=== PATIENT | female | born 2000 | race Hispanic/Latino ===

== ENCOUNTER 2024-07-24 03:40 | Emergency (ER) | payer OTHER, SELFPAY ==
--- NOTE | ~2024-07-24 | US_ITS ---
EXAMINATION: US OB <= 14 weeks fetus DATE: 07/24/2024 7:25 CDT INDICATION: Abdominal pain. Positive test. Evaluate for ectopic COMPARISON: None TECHNIQUE: Real-time transabdominal and transvaginal obstetric ultrasound. FINDINGS: 1 para 0 Estimated date of delivery by last menstrual period is 03/11/2025 Quantitative serum beta hCG is 7,262 The uterus is 9.7 x 4.6 x 6.9 cm. No gestational sac is visualized. The endometrium is markedly heterogeneous, measuring 17 mm in thickness. Trace free fluid within the endocervical canal. Cine evaluation demonstrates uterine contractions with what appears to be mobile echogenic material w ithin the endometrium. The right ovary measures 4.4 x 2.0 x 3.0 cm. Simple free fluid is visualized adjacent to the right ov mauro. The left ovary measures 3.3 x 1.6 x 3.4 cm. Complex free fluid is visualized adjacent to the left ovary IMPRESSION: No gestational sac is identified within the uterus, which one would expect given the value of the kamini ntitative serum beta hCG. Echogenic material within the endometrial canal. Free fluid within the bilateral adnexa, left greater than right, with complexity left greater than ri ght. Short-term follow-up is recommended, to ensure evacuation of products, with serial quantitative serum beta hCG. Findings d/w Dr Menchaca at 7:40am on 07/24/24 Reviewed, dictated and finalized at location A. IMPRESSION: No gestational sac is identified within the uterus, which one would expect give n the value of the quantitative serum beta hCG. Echogenic material within the endometrial canal. Free fluid within the bilateral adnexa, left greater than right, with complexit y left greater than right. Short-term follow-up is recommended, to ensure evacuation of products, with ser ial quantitative serum beta hCG. Findings d/w Dr Menchaca at 7:40am on 07/24/24
[2024-07-24 03:47] VITALS: BP 118/76; PULSE 82; RESP 15; TEMP 36.6; O2SAT 100
[2024-07-24 04:11] VITALS: BP 99/68; PULSE 73; RESP 18; O2SAT 100
[2024-07-24 04:16] LABS: Basophils Percent Auto 0.5 % (0.2-1.2); Eosinophils Absolute Auto 0.3 K/mm3 (0-0.3); Eosinophils Percent Auto 3.7 % (0-4.4); Hematocrit 30.5 % (37.0-47.0); Hemoglobin 10.7 g/dL (12.0-15.0); Immature Granulocyte Absolute 0.02 K/mm3 (0.00-0.031); Immature Granulocyte Percent A 0.2 % (0-0.5); Lymphocytes Absolute Auto 3.89 K/mm3 (0.9-3.2); Lymphocytes Percent Auto 46.7 % (18.3-44.2); Mean Corpuscular HGB Conc 35.1 g/dl (32-36); Mean Corpuscular Hemoglobin 29.7 pg (26-34); Mean Corpuscular Volume 84.7 fl (80-100); Mean Platelet Volume 8.7 fl (7.4-10.4); Monocytes Absolute Auto 0.8 K/mm3 (0.1-0.6); Monocytes Percent Auto 9.8 % (2.6-8.5); Neutrophils Absolute Auto 3.3 K/mm3 (1.3-6.7); Neutrophils Percent Auto 39.1 % (45.5-73.1); Platelet Count Result 405 k/mm3 (150-375); Red Cell Distribution Width 13.7 % (11.5-14.5); White Blood Count 8.3 K/mm3 (4.5-10.0)
--- NOTE | 2024-07-24 04:23 | ED_ITS ---
HPI - General Adult General Chief complaint: Abdominal Pain <Luis Guo MD - Last Filed: 07/24/24 04:24> Stated complaint: abd pain <Luis Guo MD - Last Filed: 07/24/24 04:24> Time Seen by Provider: 07/24/24 03:55 <Luis Guo MD - Last Filed: 07/24/24 04:24> History of Present Illness HPI narrative: Patient 23-year-old female presents emergency department chief complaint of abdominal pain. Patient states she has been having pain for about 2 weeks reports that is diffuse throughout her abdomen patient reports he has had nausea and vomiting patient reports that she is currently on her menstrual cycle < Luis Guo MD - Last Filed: 07/24/24 04:24> Related Data Allergies/adverse reactions: Allergies Allergy/AdvReac Type Severity Reaction Status Date / Time No Known Allergies Allergy Verified 07/24/24 03:53 <Luis Guo MD - Last Filed: 07/24/24 04:24> Review of Systems 2 Review of Systems: A 10 system review of systems was completed on the patient and is negative except for what is stated in the HPI. Nursing and ancillary documentation was reviewed. <Luis Guo MD - Last Filed: 07/24/24 04:24> Exam 2 Narrative: GENERAL: Well-appearing, well-nourished, and in no acute distress. HEAD: Normocephalic, atraumatic. EYES: PERRLA and EOMI. ENT: Nares clear, no rhinorrhea or epistaxis. Mucous membranes moist. NECK: Supple. CHEST: Clear to auscultation. No respiratory distress. HEART: Regular rate and rhythm. No murmur heard. Normal peripheral pulses. ABDOMEN: Soft, diffuse tenderness, nondistended, normal active bowel sounds. EXTREMITIES: Normal range of motion. No edema. SKIN: Warm, dry, no rash. NEURO: No focal deficits. Alert and oriented x3. PSYCH: Normal mood and affect. <Luis Guo MD - Last Filed: 07/24/24 04:24> Course Reevaluation(s) Reevaluation #1: Patient laying down in bed, complaining of still having abdominal pain, morphine, Zofran ordered I did explain to the patient that the ultrasound showed that she have miscarriage right now and need to take Tylenol, ibuprofen as needed and contact OBGYN in the morning for further management. <Geronimo Menchaca MD - Last Filed: 07/24/24 08:37> Date: 07/24/24 <Geronimo Menchaca MD - Last Filed: 07/24/24 08:37> Time: 08:37 <Geronimo Menchaca MD - Last Filed: 07/24/24 08:37> Vital Signs Vital signs: Vital Signs Temperature 36.6 C 07/24/24 03:47 Pulse Rate 82 07/24/24 03:47 Respiratory Rate 15 07/24/24 03:47 Blood Pressure 118/76 07/24/24 03:47 Pulse Oximetry 100 07/24/24 03:47 Oxygen Delivery Room Air 07/24/24 03:47 Temperature 36.6 C 07/24/24 03:47 Pulse Rate 76 07/24/24 05:35 Respiratory Rate 18 07/24/24 05:35 Blood Pressure 108/67 07/24/24 05:35 Pulse Oximetry 100 07/24/24 05:35 Oxygen Delivery Room Air 07/24/24 03:47 <Luis Guo MD - Last Filed: 07/24/24 04:24> Vital Signs Temperature 36.6 C 07/24/24 03:47 Pulse Rate 82 07/24/24 03:47 Respiratory Rate 15 07/24/24 03:47 Blood Pressure 118/76 07/24/24 03:47 Pulse Oximetry 100 07/24/24 03:47 Oxygen Delivery Room Air 07/24/24 03:47 Temperature 36.6 C 07/24/24 03:47 Pulse Rate 76 07/24/24 05:35 Respiratory Rate 18 07/24/24 05:35 Blood Pressure 108/67 07/24/24 05:35 Pulse Oximetry 100 07/24/24 05:35 Oxygen Delivery Room Air 07/24/24 03:47 <Geronimo Menchaca MD - Last Filed: 07/24/24 08:37> Medical Decision Making Vital Signs Vital Signs: Vital Signs Temperature 36.6 C 07/24/24 03:47 Pulse Rate 82 07/24/24 03:47 Respiratory Rate 15 07/24/24 03:47 Blood Pressure 118/76 07/24/24 03:47 Pulse Oximetry 100 07/24/24 03:47 Oxygen Delivery Room Air 07/24/24 03:47 Temperature 36.6 C 07/24/24 03:47 Pulse Rate 76 07/24/24 05:35 Respiratory Rate 18 07/24/24 05:35 Blood Pressure 108/67 07/24/24 05:35 Pulse Oximetry 100 07/24/24 05:35 Oxygen Delivery Room Air 07/24/24 03:47 <Luis Guo MD - Last Filed: 07/24/24 04:24> Vital Signs Temperature 36.6 C 07/24/24 03:47 Pulse Rate 82 07/24/24 03:47 Respiratory Rate 15 07/24/24 03:47 Blood Pressure 118/76 07/24/24 03:47 Pulse Oximetry 100 07/24/24 03:47 Oxygen Delivery Room Air 07/24/24 03:47 Temperature 36.6 C 07/24/24 03:47 Pulse Rate 76 07/24/24 05:35 Respiratory Rate 18 07/24/24 05:35 Blood Pressure 108/67 07/24/24 05:35 Pulse Oximetry 100 07/24/24 05:35 Oxygen Delivery Room Air 07/24/24 03:47 <Geronimo Menchaca MD - Last Filed: 07/24/24 08:37> Lab Data Result diagrams: 07/24/24 04:09 07/24/24 04:09 <Luis Guo MD - Last Filed: 07/24/24 04:24> Labs: Lab Results 07/24/24 07/24/24 07/24/24 Range/Units 04:09 06:18 07:19 WBC 8.3 (4.5-10.0) K/mm3 RBC 3.60 L (4.2-5.4) M/mm3 Hgb 10.7 L (12.0-15.0) g/dL Hct 30.5 L (37.0-47.0) % MCV 84.7 (80-100) fl MCH 29.7 (26-34) pg MCHC 35.1 (32-36) g/dl RDW 13.7 (11.5-14.5) % Plt Count 405 H (150-375) k/mm3 MPV 8.7 (7.4-10.4) fl Immature Gran % (Auto) 0.2 (0-0.5) % Neut % (Auto) 39.1 L (45.5-73.1) % Lymph % (Auto) 46.7 H (18.3-44.2) % Falls % (Auto) 9.8 H (2.6-8.5) % Eos % (Auto) 3.7 (0-4.4) % Baso % (Auto) 0.5 (0.2-1.2) % Lymph # (Auto) 3.89 H (0.9-3.2) K/mm3 Falls # (Auto) 0.8 H (0.1-0.6) K/mm3 Eos # (Auto) 0.3 (0-0.3) K/mm3 Baso # (Auto) 0.0 (0.0-0.1) K/mm3 Abs Immat Gran (auto) 0.02 (0.00-0.031) K/mm3 Absolute Neuts (auto) 3.3 (1.3-6.7) K/mm3 Absolute Nucleated RBC 0.000 (0.0-0.012) K/mm3 Nucleated RBC % 0.0 (0.0-0.2) % Sodium 139 (137-145) mmol/L Potassium 3.2 L (3.4-5.0) mmol/L Chloride 106 (98-107) mmol/L Carbon Dioxide 18 L (22-30) mmol/L Anion Gap 15 H (4-12) mmol/L BUN 11 (7-17) mg/dL Creatinine 0.55 L (0.7-1.0) mg/dL Estim Creat Clear Calc 114 ml/min Estimated GFR > 60 (59 - ) Glucose 112 H (65-110) mg/dL Calcium 9.3 (8.4-10.2) mg/dL Total Bilirubin 0.4 (0.2-1.3) mg/dL AST 32 (14-36) U/L ALT 26 (6-35) U/L Alkaline Phosphatase 103 (38-126) U/L Total Protein 7.0 (6.3-8.2) g/dL Albumin 4.3 (3.5-5.1) g/dL Lipase 170 (23-300) U/L Serum HCG, Qual Positive A Beta HCG, Quant 7262.30 mIU/ML Urine Color Yellow (Yellow) Urine Appearance Cloudy H (Clear) Urine pH 8.5 (5.0-9.0) Ur Specific [place] 1.027 (1.001-1.035) Urine Protein 1+ H (Negative) mg/dL Urine Glucose (UA) Negative (Negative) mg/dL Urine Ketones 1+ H (Negative) mg/dL Ur Blood (Man) Trace (Negative) Urine Nitrate Positive H (Negative) Urine Bilirubin Negative (Negative) Urine Urobilinogen 1.0 (<2.0) mg/dL Leukocyte Esterase Rfl Negative (Negative) GELY/UL Urine RBC 0-2 (0-2) /hpf Urine WBC 0-5 (0-3) /hpf Ur Squamous Epith Cells None seen (Few) /hpf Urine Bacteria 4+ /hpf Urine Casts 3-5 POC Urine HCG, Qual (Negative) Blood Type O Positive Antibody Screen Negative Screen Not Reportable Baby's Blood Type Not Reportable Baby's MEAGHAN Not Reportable Doses of RhIg Required 0 07/24/24 Range/Units 07:34 WBC (4.5-10.0) K/mm3 RBC (4.2-5.4) M/mm3 Hgb (12.0-15.0) g/dL Hct (37.0-47.0) % MCV (80-100) fl MCH (26-34) pg MCHC (32-36) g/dl RDW (11.5-14.5) % Plt Count (150-375) k/mm3 MPV (7.4-10.4) fl Immature Gran % (Auto) (0-0.5) % Neut % (Auto) (45.5-73.1) % Lymph % (Auto) (18.3-44.2) % Falls % (Auto) (2.6-8.5) % Eos % (Auto) (0-4.4) % Baso % (Auto) (0.2-1.2) % Lymph # (Auto) (0.9-3.2) K/mm3 Falls # (Auto) (0.1-0.6) K/mm3 Eos # (Auto) (0-0.3) K/mm3 Baso # (Auto) (0.0-0.1) K/mm3 Abs Immat Gran (auto) (0.00-0.031) K/mm3 Absolute Neuts (auto) (1.3-6.7) K/mm3 Absolute Nucleated RBC (0.0-0.012) K/mm3 Nucleated RBC % (0.0-0.2) % Sodium (137-145) mmol/L Potassium (3.4-5.0) mmol/L Chloride (98-107) mmol/L Carbon Dioxide (22-30) mmol/L Anion Gap (4-12) mmol/L BUN (7-17) mg/dL Creatinine (0.7-1.0) mg/dL Estim Creat Clear Calc ml/min Estimated GFR (59 - ) Glucose (65-110) mg/dL Calcium (8.4-10.2) mg/dL Total Bilirubin (0.2-1.3) mg/dL AST (14-36) U/L ALT (6-35) U/L Alkaline Phosphatase (38-126) U/L Total Protein (6.3-8.2) g/dL Albumin (3.5-5.1) g/dL Lipase (23-300) U/L Serum HCG, Qual Beta HCG, Quant mIU/ML Urine Color (Yellow) Urine Appearance (Clear) Urine pH (5.0-9.0) Ur Specific [place] (1.001-1.035) Urine Protein (Negative) mg/dL Urine Glucose (UA) (Negative) mg/dL Urine Ketones (Negative) mg/dL Ur Blood (Man) (Negative) Urine Nitrate (Negative) Urine Bilirubin (Negative) Urine Urobilinogen (<2.0) mg/dL Leukocyte Esterase Rfl (Negative) GELY/UL Urine RBC (0-2) /hpf Urine WBC (0-3) /hpf Ur Squamous Epith Cells (Few) /hpf Urine Bacteria /hpf Urine Casts POC Urine HCG, Qual Positive (Negative) Blood Type Antibody Screen Screen Baby's Blood Type Baby's MEAGHAN Doses of RhIg Required <Luis Guo MD - Last Filed: 07/24/24 04:24> Lab Results 07/24/24 07/24/24 07/24/24 Range/Units 04:09 06:18 07:19 WBC 8.3 (4.5-10.0) K/mm3 RBC 3.60 L (4.2-5.4) M/mm3 Hgb 10.7 L (12.0-15.0) g/dL Hct 30.5 L (37.0-47.0) % MCV 84.7 (80-100) fl MCH 29.7 (26-34) pg MCHC 35.1 (32-36) g/dl RDW 13.7 (11.5-14.5) % Plt Count 405 H (150-375) k/mm3 MPV 8.7 (7.4-10.4) fl Immature Gran % (Auto) 0.2 (0-0.5) % Neut % (Auto) 39.1 L (45.5-73.1) % Lymph % (Auto) 46.7 H (18.3-44.2) % Falls % (Auto) 9.8 H (2.6-8.5) % Eos % (Auto) 3.7 (0-4.4) % Baso % (Auto) 0.5 (0.2-1.2) % Lymph # (Auto) 3.89 H (0.9-3.2) K/mm3 Falls # (Auto) 0.8 H (0.1-0.6) K/mm3 Eos # (Auto) 0.3 (0-0.3) K/mm3 Baso # (Auto) 0.0 (0.0-0.1) K/mm3 Abs Immat Gran (auto) 0.02 (0.00-0.031) K/mm3 Absolute Neuts (auto) 3.3 (1.3-6.7) K/mm3 Absolute Nucleated RBC 0.000 (0.0-0.012) K/mm3 Nucleated RBC % 0.0 (0.0-0.2) % Sodium 139 (137-145) mmol/L Potassium 3.2 L (3.4-5.0) mmol/L Chloride 106 (98-107) mmol/L Carbon Dioxide 18 L (22-30) mmol/L Anion Gap 15 H (4-12) mmol/L BUN 11 (7-17) mg/dL Creatinine 0.55 L (0.7-1.0) mg/dL Estim Creat Clear Calc 114 ml/min Estimated GFR > 60 (59 - ) Glucose 112 H (65-110) mg/dL Calcium 9.3 (8.4-10.2) mg/dL Total Bilirubin 0.4 (0.2-1.3) mg/dL AST 32 (14-36) U/L ALT 26 (6-35) U/L Alkaline Phosphatase 103 (38-126) U/L Total Protein 7.0 (6.3-8.2) g/dL Albumin 4.3 (3.5-5.1) g/dL Lipase 170 (23-300) U/L Serum HCG, Qual Positive A Beta HCG, Quant 7262.30 mIU/ML Urine Color Yellow (Yellow) Urine Appearance Cloudy H (Clear) Urine pH 8.5 (5.0-9.0) Ur Specific [place] 1.027 (1.001-1.035) Urine Protein 1+ H (Negative) mg/dL Urine Glucose (UA) Negative (Negative) mg/dL Urine Ketones 1+ H (Negative) mg/dL Ur Blood (Man) Trace (Negative) Urine Nitrate Positive H (Negative) Urine Bilirubin Negative (Negative) Urine Urobilinogen 1.0 (<2.0) mg/dL Leukocyte Esterase Rfl Negative (Negative) GELY/UL Urine RBC 0-2 (0-2) /hpf Urine WBC 0-5 (0-3) /hpf Ur Squamous Epith Cells None seen (Few) /hpf Urine Bacteria 4+ /hpf Urine Casts 3-5 POC Urine HCG, Qual (Negative) Blood Type O Positive Antibody Screen Negative Screen Not Reportable Baby's Blood Type Not Reportable Baby's MEAGHAN Not Reportable Doses of RhIg Required 0 07/24/24 Range/Units 07:34 WBC (4.5-10.0) K/mm3 RBC (4.2-5.4) M/mm3 Hgb (12.0-15.0) g/dL Hct (37.0-47.0) % MCV (80-100) fl MCH (26-34) pg MCHC (32-36) g/dl RDW (11.5-14.5) % Plt Count (150-375) k/mm3 MPV (7.4-10.4) fl Immature Gran % (Auto) (0-0.5) % Neut % (Auto) (45.5-73.1) % Lymph % (Auto) (18.3-44.2) % Falls % (Auto) (2.6-8.5) % Eos % (Auto) (0-4.4) % Baso % (Auto) (0.2-1.2) % Lymph # (Auto) (0.9-3.2) K/mm3 Falls # (Auto) (0.1-0.6) K/mm3 Eos # (Auto) (0-0.3) K/mm3 Baso # (Auto) (0.0-0.1) K/mm3 Abs Immat Gran (auto) (0.00-0.031) K/mm3 Absolute Neuts (auto) (1.3-6.7) K/mm3 Absolute Nucleated RBC (0.0-0.012) K/mm3 Nucleated RBC % (0.0-0.2) % Sodium (137-145) mmol/L Potassium (3.4-5.0) mmol/L Chloride (98-107) mmol/L Carbon Dioxide (22-30) mmol/L Anion Gap (4-12) mmol/L BUN (7-17) mg/dL Creatinine (0.7-1.0) mg/dL Estim Creat Clear Calc ml/min Estimated GFR (59 - ) Glucose (65-110) mg/dL Calcium (8.4-10.2) mg/dL Total Bilirubin (0.2-1.3) mg/dL AST (14-36) U/L ALT (6-35) U/L Alkaline Phosphatase (38-126) U/L Total Protein (6.3-8.2) g/dL Albumin (3.5-5.1) g/dL Lipase (23-300) U/L Serum HCG, Qual Beta HCG, Quant mIU/ML Urine Color (Yellow) Urine Appearance (Clear) Urine pH (5.0-9.0) Ur Specific [place] (1.001-1.035) Urine Protein (Negative) mg/dL Urine Glucose (UA) (Negative) mg/dL Urine Ketones (Negative) mg/dL Ur Blood (Man) (Negative) Urine Nitrate (Negative) Urine Bilirubin (Negative) Urine Urobilinogen (<2.0) mg/dL Leukocyte Esterase Rfl (Negative) GELY/UL Urine RBC (0-2) /hpf Urine WBC (0-3) /hpf Ur Squamous Epith Cells (Few) /hpf Urine Bacteria /hpf Urine Casts POC Urine HCG, Qual Positive (Negative) Blood Type Antibody Screen Screen Baby's Blood Type Baby's MEAGHAN Doses of RhIg Required <Geronimo Menchaca MD - Last Filed: 07/24/24 08:37> Discharge Plan Discharge Clinical Impression: Urinary tract infection, Miscarriage <Luis Guo MD - Last Filed: 07/24/24 04:24> Patient Disposition: Home, Self-Care <Luis Guo MD - Last Filed: 07/24/24 04:24> Condition: Stable <Luis Guo MD - Last Filed: 07/24/24 04:24> Instructions: Antibiotic Form, Miscarriage (ED), Urinary Tract Infection in Women (ED) <Luis Guo MD - Last Filed: 07/24/24 04:24> Additional Instructions: Return if symptoms are worsening , call OBGYN for appointment, take Tylenol, ibuprofen as as needed for aches and pain, continue home medications. <Luis Guo MD - Last Filed: 07/24/24 04:24> Patient Language: English <Luis Guo MD - Last Filed: 07/24/24 04:24> Prescriptions: New nitrofurantoin monohyd/m-cryst [Macrobid] 100 mg capsule 100 mg PO Q12H 5 Days Qty: 10 0RF Rx Instructions: must administer with a meal/food <Luis Guo MD - Last Filed: 07/24/24 04:24> Follow-up/Referrals: PHYSICIAN NOT ON STAFF,NONSTAFF [Primary Care Provider] - Joseph Bermudez MD [Physician] - 07/25/24 <Luis Guo MD - Last Filed: 07/24/24 04:24>
[2024-07-24] MEDS: ONDANSETRON INJ 4 MG/2 ML VIAL IV PUSH ×2 (04:55→08:39)
[2024-07-24] MEDS: MORPHINE SULFATE (*CRX) 4 MG/ML INJ IV PUSH ×2 (04:56→08:40)
[2024-07-24 04:57] VITALS: BP 112/66; PULSE 87; RESP 18; O2SAT 100
[2024-07-24 05:05] LABS: Alanine Aminotransferase 26 U/L (6-35); Albumin Level 4.3 g/dL (3.5-5.1); Alkaline Phosphatase 103 U/L (38-126); Anion Gap 15 mmol/L (4-12); Aspartate Amino Transferase 32 U/L (14-36); Bilirubin,Total 0.4 mg/dL (0.2-1.3); Blood Urea Nitrogen 11 mg/dL (7-17); Calcium 9.3 mg/dL (8.4-10.2); Carbon Dioxide 18 mmol/L (22-30); Chloride 106 mmol/L (98-107); Estimated CRCL calculation 114 ml/min; Estimated Glomerular Filt Rate > 60; Glucose 112 mg/dL (65-110); Lipase 170 U/L (23-300); Potassium 3.2 mmol/L (3.4-5.0); Sodium 139 mmol/L (137-145)
[2024-07-24 05:19] LABS: SPREG INTERNAL CONTROL Positive; Serum Qual hCG Positive
[2024-07-24 05:35] VITALS: BP 108/67; PULSE 76; RESP 18; O2SAT 100
[2024-07-24 07:34] LABS: Add Urine Microscopic? YES; Appearance Urine Cloudy (Clear); Bacteria Urine 4+ /hpf; Bilirubin Urine Negative (Negative); Blood Urine Trace (Negative); Color Urine Yellow (Yellow); Glucose Urine UA Negative (Negative); Ketones Urine 1+ mg/dL (Negative); Leukocyte Esterase Ur Negative LEU/UL (Negative); Nitrate Urine Positive (Negative); Protein Urine 1+ mg/dL (Negative); RBC Urine 0-2 /hpf (0-2); Specific Grav Ur 1.027 (1.001-1.035); Squamous Epithelial Cell Urine None Seen /hpf (Few); WBC Urine 0-5 /hpf (0-3); pH Urine 8.5 (5.0-9.0)
[2024-07-24 07:36] LABS: BEDSIDEPREGUCG Positive (Negative)
[2024-07-24 09:04] VITALS: BP 124/68; PULSE 78; RESP 14; O2SAT 99
== END 2024-07-24 09:05 | disposition home or self-care (01) ==
PROVIDERS: Emergency Medicine; Emergency Provider Emergency Medicine
DX: N39.0 Urinary tract infection, site not specified (principal); O03.9 Complete or unspecified spontaneous abortion without complication
CPT/HCPCS: 36415; 76801; 80053; 81001; 81025; 83690; 84702; 84703; 85025; 85461; 86850; 86900; 86901; 87086; 87186; 96374; 96375; 96376; 99284; J2270; J2405